=== PATIENT | female | born 1990 | race Caucasian/White ===

== ENCOUNTER 2017-02-20 10:02 | Day surgery (SDC) | payer MEDICARE, MEDICAID ==
[~2017-02-20] VITALS: Ht 165.1 cm; Wt 55.0 kg
[~2017-02-20 10:02] MED LIST: LACTATED RINGERS 1,000 ML IV SCH; SODIUM CHLORIDE FLUSH 3 ML SYR IV PRN; ceFAZolin 2,000 MG in WATER (STERILE) FOR INJECTION 20 ML IV SCH
--- OUTSIDE RECORDS SUMMARY | 2017-02-20 10:06 | XMS REPORT ---
Author Author Roger Pichardo Organization [employer] Address Unknown Phone Unavailable Care Team Providers Care Phlebotomist Medical Lab Assistant Name Role Phone Roger Pichardo CP Unavailable Allergies, Adverse Reactions, Alerts Substance Reaction Event Type N.K.D.A. Info Not Available Non Drug Allergy Problems Problem Type Condition Code Onset Dates Condition Status Assessment Encounter for dental examination and cleaning without abnormal findings Z01.20 Active Medications Medication Code System Code Instructions Start Date End Date Status Dosage Triamcinolone & Emollient [facility] 0 not defined Sronyx [facility] [id number] not defined Acetaminophen [facility] [id number] not defined Procedures Procedure Coding System Code Date PALLIATVE TX DENTAL PAIN-MINOR PROC CPT-4 D9110 May 08, 2016 LTD ORAL EVALUATION - PROBLEM FOCUS CPT-4 D0140 May 08, 2016 Results No Known Results Summary Purpose [employer] Submission
[2017-02-20 10:15] VITALS: BP 127/75
[2017-02-20] MEDS ORDERED: LIDOCAINE/EPINEPHRINE 1%-1:100,000 (XYLOCAINE) 20ML VIAL ONE (10:25)
[2017-02-20] MEDS ORDERED: PROPOFOL 20 ML IV ONE (10:54)
[2017-02-20] MEDS ORDERED: MIDAZOLAM 2 MG/2 ML (VERSED) VIAL ONE (10:54)
[2017-02-20] MEDS ORDERED: ALFENTANIL 500 MCG/ML (ALFENTA) 5 ML AMP IV ONE ×2 (10:54)
[2017-02-20 12:40] VITALS: BP 94/66
[2017-02-20 13:10] VITALS: BP 109/76
--- NOTE | 2017-02-20 13:17 | OPERATIVE REPORT ---
DATE OF OPERATION: 02/20/2017 PRE-OPERATIVE DIAGNOSIS: Inflammatory lesion, right axilla POST-OPERATIVE DIAGNOSIS: Inflammatory lesion, right axilla OPERATIVE PROCEDURE: Excision of right axillary lesion SURGEON: Chalo Seay MD CIRCULAR CLERK: Ngoc Hernandez RN FA ANESTHESIA: Monitored anesthesia care with local INDICATIONS: The patient is a 27-year-old originally referred by Pamela Manning, whom I had been seeing after a biopsy of a right axillary mass several weeks ago. 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 There is still a mass effect with granulomatous tissue at the incision, and I offered repeat excision to wider margins to try to remove the offending tissue and to allow for adequate healing. She presents today for this procedure. DESCRIPTION OF PROCEDURE: The patient, and her caregiver, were informed of the risks and benefits and agreed to proceed. She administered preoperative IV antibiotics and then taken to the operating room. She was placed supine on the standard operating table with her right arm abducted on an arm board. The right axilla was then prepped and draped in standard sterile fashion after sedation was administered. Then 1% lidocaine with epinephrine was injected in the skin around the previous scar and the resulting wound. The #15 blade scalpel was then used to make an elliptical incision in the skin around the previous wound and the skin was excised. The underlying indurated fibrotic tissue was then removed using a #15 blade scalpel down to more normal appearing axillary fat. The specimen was sent in three separate pieces. There was some deep, purple granulation that was suctioned and removed as well and the underlying adipose tissue, fascia and muscle appeared normal without any necrosis or evidence of inflammation. The wound was copiously irrigated. Hemostasis was achieved with cautery and once this was assured, the skin was loosely reapproximated with interrupted 4-0 Ethilon. A dressing was applied. The patient tolerated the procedure without complications. Path is pending and cultures will be obtained for aerobes, anaerobes, acid-fast organisms and fungi.
== END 2017-02-20 13:26 | disposition home or self-care (01) ==
LOC: ASC 10:02
PROVIDERS: ATTEND Surgery
DX: R22.31 Localized swelling, mass and lump, right upper limb (principal); L92.8 Other granulomatous disorders of the skin and subcutaneous tissue
CPT/HCPCS: 11400; 87070; 87102; 87116; 88305; J2250; J7120; 87075